=== PATIENT | female | born 1935 | race Caucasian/White ===

== ENCOUNTER 2016-04-13 09:34 | Day surgery (SDC) | payer MEDICARE ==
[2016-04-13] MEDS ORDERED: Lidocaine Topical 2% 30 mL Jelly ONE (10:00)
== END 2016-04-13 23:59 | disposition home or self-care (01) ==
LOC: END 09:34
PROVIDERS: ATTEND Internal Medicine Gastroenterology
DX: K20.9 Esophagitis, unspecified (principal); R13.10 Dysphagia, unspecified; R05 Cough